=== PATIENT | male | born 1945 | race Caucasian/White ===

== ENCOUNTER 2019-06-12 15:30 | Outpatient (CLI) | payer BC, MEDICARE ==
--- NOTE | 2019-06-12 16:23 | RAD ---
EXAM: 5 views of the cervical spine HISTORY: Neck pain COMPARISON: None FINDINGS: AP, lateral, oblique, and open mouth odontoid views of the cervical spine shows normal heig ht and alignment of the vertebral bodies and intervertebral discs without fracture or subluxation. Mild to moderate degenerative changes are seen in the lower cervical spine. No prevertebral soft tiss ue swelling is seen. IMPRESSION: Degenerative changes of cervical spine without acute osseous abnormality.
== END 2019-06-12 15:31 | disposition home or self-care (01) ==
LOC: SCSRAD 15:30
PROVIDERS: ATTEND Chiropractor
DX: M47.813 Spondylosis without myelopathy or radiculopathy, cervicothoracic region (principal); M54.2 Cervicalgia; M47.812 Spondylosis without myelopathy or radiculopathy, cervical region
CPT/HCPCS: 72050